=== PATIENT | male | born 1955 | race African-American/Black ===

== ENCOUNTER 2019-05-26 06:45 | Observation (INO) ==
[2019-05-26 07:55] LABS: Basophils % 0.1 % (0.0-0.8); Hematocrit 47.4 VOL% (42.0-52.0); Hemoglobin 15.4 GM/DL (14.0-18.0); Immature Granulocytes % 0.4 %; Immature Granulocytes Absolute 0.04 #; Lymphocytes # 0.6 10*3/uL (1.4-4.0); Lymphocytes % 5.8 % (21.2-54.2); Mean Corpuscular HGB Conc 32.5 GM/DL (32-36); Mean Corpuscular Volume 89.8 FL (87-102); Mean Platelet Volume 9.3 FL (9.6-12.0); Monocytes % 3.3 % (1.7-12.7); Neutrophils % 90.4 % (38.7-73.9); Platelet Count 248 T/CUMM (130-400); Red Blood Count 5.28 MC/CUMM (3.8-5.5); Red Cell Distribution Width 11.9 % (9.3-17.3); White Blood Count 10.4 T/CUMM (4-12)
[2019-05-26 08:15] LABS: Calcium 9.7 MG/DL (8.5-10.1); Osmolality,Calculated 282.5 MOS/KG (273-304)
[2019-05-26] MEDS ORDERED: ONDANSETRON 4 MG/2 ML VIAL IV PRN (09:04)
[2019-05-26] MEDS ORDERED: ceFAZolin 2,000 MG in PREMIX 1 EACH IV ONE (09:39)
[2019-05-26] MEDS: MORPHINE 4 MG/1 ML VIAL IV PRN ×3 (11:04→23:45)
[2019-05-26] MEDS: SODIUM CHLORIDE 0.45% 1,000 ML IV SCH ×2 (11:32→18:17)
[2019-05-26 15:11] LABS: Troponin I < 0.015 NG/ML (0.00-0.045)
[2019-05-26] MEDS ORDERED: FLUTICASONE/SALMETEROL 250-50 DISKUS 14 DOSE INH SCH (21:00)
[2019-05-27] MEDS: SODIUM CHLORIDE 0.45% 1,000 ML IV SCH ×2 (00:47→12:11)
[2019-05-27] MEDS ORDERED: ENOXAPARIN 40 MG/0.4 ML SYRINGE SUBCUT SCH (03:06)
[2019-05-27] MEDS ORDERED: ceFAZolin 2,000 MG in PREMIX 1 EACH IV ONE (06:30)
[2019-05-27] MEDS ORDERED: BUPIVACAINE MPF 0.25% 30 ML VIAL ONE (06:36)
[2019-05-27] MEDS ORDERED: LIDOCAINE 1%/EPI INJ 20 ML VIAL ONE (06:36)
[2019-05-27] MEDS ORDERED: FAMOTIDINE 20 MG/2 ML VIAL IV ONE (07:24)
[2019-05-27] MEDS ORDERED: ceFAZolin 1,000 MG VIAL ONE (07:49)
[2019-05-27] MEDS ORDERED: fentaNYL 100 MCG/2 ML VIAL ONE (08:36)
[2019-05-27] MEDS ORDERED: PHENYLEPHRINE 1 MG/10 ML SYRINGE IV ONE (08:36)
[2019-05-27] MEDS ORDERED: propofoL 200 MG/20 ML VIAL IV ONE (08:36)
[2019-05-27] MEDS ORDERED: LACTATED RINGERS 1,000 ML IV ONE (08:36)
[2019-05-27] MEDS ORDERED: LIDOCAINE 2% 5 ML VIAL ONE (08:36)
[2019-05-27] MEDS ORDERED: MIDAZOLAM 2 MG/2 ML VIAL ONE (08:36)
[2019-05-27] MEDS ORDERED: KETOROLAC 30 MG/1 ML VIAL ONE (08:36)
[2019-05-27] MEDS ORDERED: SEVOFLURANE 1 UNIT/15 MINUTE INH ONE (08:36)
[2019-05-27] MEDS ORDERED: ONDANSETRON 4 MG/2 ML VIAL ONE (08:36)
[2019-05-27] MEDS ORDERED: VALSARTAN/HCTZ 160-12.5 MG TABLET PO SCH (09:00)
[2019-05-27] MEDS ORDERED: PANTOPRAZOLE 40 MG TABLET PO SCH (09:00)
[2019-05-27] MEDS ORDERED: FLUTICASONE/SALMETEROL 250-50 DISKUS 14 DOSE INH SCH (09:00)
[2019-05-27] MEDS ORDERED: FLUTICASONE 50 MCG NASAL SPRAY 16 GM BOTTLE BOTH NARES SCH (09:00)
[2019-05-27] MEDS ORDERED: MONTELUKAST 10 MG TABLET PO SCH (09:00)
[2019-05-27] MEDS: IPRATROPIUM 500 MCG/2.5 ML NEB RESP TX SCH ×3 (10:29→15:00)
[2019-05-27 14:21] VITALS: BP 128/83
== END 2019-05-27 16:48 | disposition home or self-care (01) ==
LOC: N.EDINP 06:45 → N.ED 06:45 → N.3E 10:01
PROVIDERS: ADMIT Surgery; ATTEND Surgery